=== PATIENT | female | born 1985 | race African-American/Black ===

== ENCOUNTER 2024-10-20 23:41 | Emergency (ER) | payer MEDICAID, OTHER, SELFPAY ==
[2024-10-21] MEDS ORDERED: Acetaminophen 500 MG TAB ONE (00:21)
[2024-10-21 00:38] LABS: #Basophils Less than 0.03 10x3/uL (0.0-0.2); %Basophils 0.2 % (0.0-1.0); %Eosinophils 7.1 % (0.0-10.0); %Lymphocytes 30.6 % (21.0-51.0); %Monocytes 7.9 % (0.0-10.0); Hematocrit 36.4 % (36.0-47.0); Hemoglobin 11.8 g/dL (12.0-16.0); Mean Corpuscular HGB CONC 32.4 g/dL (32.0-36.0); Mean Corpuscular Hemoglobin 26.6 pg (27.0-31.0); Mean Corpuscular Volume 82.2 fL (78.0-98.0); Platelet Count 341 10x3/uL (130-400); RBC Distribution Width 14.6 % (11.5-14.5); Red Blood Cell (RBC) Count 4.43 mill/uL (4.20-5.40)
[2024-10-21 00:55] LABS: Anion Gap 12 mmol/L (10-20); BUN (Urea Nitrogen) 10 mg/dL (7.0-18.7); Calc. Creatinine Clearance 0 mL/min (70-130); Carbon Dioxide 21 mmol/L (22-29); Chloride 108 mmol/L (98-107); Potassium 3.7 mmol/L (3.5-5.1); Sodium 137 mmol/L (136-145)
[2024-10-21 00:56] LABS: ALT (SGPT) 11 U/L (Less than 34); AST (SGOT) 16 U/L (11-34); Albumin 3.9 g/dL (3.1-4.5); Alkaline Phosphatase 61 U/L (40-110); Bilirubin, Total 0.2 mg/dL (0.3-1.2); Calcium 8.8 mg/dL (7.8-10.44); Estimated GFR 95; Glucose 99 mg/dL (70-105); Lipase 18 U/L (8-78); Protein, Total 6.9 g/dL (6.0-8.3)
== END 2024-10-21 03:19 | disposition short-term general hospital (02) ==
LOC: ERS 23:41
DX: O34.81 Maternal care for other abnormalities of pelvic organs, first trimester (principal); N83.202 Unspecified ovarian cyst, left side; Z3A.01 Less than 8 weeks gestation of pregnancy; Z55.0 Illiteracy and low-level literacy; Z87.891 Personal history of nicotine dependence
CPT/HCPCS: 36415; 76856; 80053; 83690; 84702; 85025; 86900; 86901

== ENCOUNTER 2025-07-01 23:45 | Emergency (ER) | payer SELFPAY | END 2025-07-02 03:09 | disposition home or self-care (01) | LOC: ERS 23:45 | DX: M79.604 Pain in right leg (principal); I10 Essential (primary) hypertension; F17.210 Nicotine dependence, cigarettes, uncomplicated ==